=== PATIENT | male | born 1950 | race Hispanic/Latino ===

== ENCOUNTER 2020-05-09 09:37 | Day surgery (SDC) | payer MEDICARE, OTHER ==
[2020-05-09] MEDS ORDERED: LACTATED RINGERS 1,000 ML IV SCH (10:12)
[2020-05-09] MEDS ORDERED: SODIUM CHLORIDE 0.9% 1000 ML 1,000 ML ONE (10:51)
[2020-05-09] MEDS ORDERED: HYDROmorphone 1 MG/1 ML INJ IV PRN ×2 (11:11)
[2020-05-09] MEDS ORDERED: ONDANSETRON 4 MG/2 ML INJ IV PRN (11:11)
--- NOTE | 2020-05-09 11:12 | Anesthesia Day of Surgery ---
Anesthesia Day of Surgery - Day of Surgery Patient Examined: Yes Patient H&P Reviewed: Yes Patient is NPO: Yes
--- NOTE | 2020-05-09 11:14 | Anesthesia Consultation ---
Anesthesia Consult and Med Hx Date of service: 05/09/20 - Airway Anesthetic Teeth Evaluation: Edentulous ROM Head & Neck: Adequate Mental/Hyoid Distance: Adequate Mallampati Class: Class II Intubation Access Assessment: Good - Pre-Operative Health Status ASA Pre-Surgery Classification: ASA2 Proposed Anesthetic Plan: General - Pulmonary Hx Smoking: No Hx Respiratory Symptoms: No (+2FS) Hx Sleep Apnea: No (BRE PRE SCREEN HIGH RISK) - Cardiovascular System Hx Hypertension: No Hx Coronary Artery Disease: No (Negative NST [id number]) Hx Peripheral Vascular Disease: Yes (Carotid US [id number] <50% ) - Central Nervous System Hx Back Pain: Yes (NECK AND BACK PAIN) Hx Psychiatric Problems: No - Hematic Hx Anemia: No
[2020-05-09] MEDS ORDERED: ceFAZolin/Water 2 GM/20 ML 2 GM/20 ML SYRINGE IV ONE (11:39)
[2020-05-09] MEDS ORDERED: propofoL 200 MG/20 ML VIAL IV ONE (11:46)
[2020-05-09] MEDS ORDERED: HYDROmorphone 1 MG/1 ML INJ ONE (11:47)
[2020-05-09] MEDS ORDERED: LIDOCAINE MPF (2%) 20 MG/1 ML VIAL 5 ML ONE (11:47)
[2020-05-09] MEDS ORDERED: ceFAZolin/Water 2 GM/20 ML 2 GM/20 ML SYRINGE IV NR (12:00)
[2020-05-09] MEDS ORDERED: WATER FOR IRRIG STERILE 1,500 ML BOTTLE IR ONE (12:42)
[2020-05-09] MEDS ORDERED: WATER FOR IRRIG STERILE 2000 ML IR ONE (12:43)
[2020-05-09] MEDS ORDERED: ONDANSETRON 4 MG/2 ML INJ ONE (13:18)
[2020-05-09] MEDS ORDERED: SODIUM CHLORIDE 0.9% 1000 ML IV SOLN IR ONE (13:42)
--- NOTE | 2020-05-09 13:45 | Post Operative Note ---
Date of procedure: 05/09/20 Pre-op diagnosis: rec cap Post-op diagnosis: same Findings: small gland post xrt Procedure: cysto cryoablation prostate Anesthesia: GETA Surgeon: VERNA JACKSON Estimated blood loss: minimal Pathology: none Condition: stable Disposition: PACU
--- NOTE | 2020-05-09 13:46 | Discharge Summary ---
Short Stay Discharge Plan Activity: other (no straining ) Weight Bearing Status: Full Weight Bearing Diet: low fat, low cholesterol, low salt Wound: other (ice to perineum in rr ) Durable Medical Equipment Needed Upon Discharge: other (ervin care ) Follow up with: SAMARA ARMSTRONG [Other] - 7 Days VERNA JACKSON MD [Staff Physician] - 7 Days
--- NOTE | 2020-05-09 14:13 | Operative Report ---
PREOPERATIVE DIAGNOSIS: Recurrent prostate cancer, high grade. POSTOPERATIVE DIAGNOSIS: Recurrent prostate cancer, high grade. PROCEDURE: Cystoscopy, cryoablation of prostate. SURGEON: Dr. Lagunas. ANESTHESIA: General. FINDINGS: This is a gentleman who had disease at the right base. He has minimal tissue. Prostate gland is between 10 and 15 grams. He now presents for cryoablation. DESCRIPTION OF PROCEDURE: The patient was brought to the operating room and placed on the operating room table. Following induction of anesthesia, placed in lithotomy position, prepped and draped in usual sterile fashion. A 16 Rajan was easily inserted. The ultrasound was placed, showed a very small gland. We marked out the treatment plan, it was only accessible for a maximum of 4 probes. We focussed on the right side which had a little more tissue. Probes 1 and 2 were placed and checked in both images. Prior to doing that, we set the length at approximately 2-2.5 cm max. At this point, Denonvilliers was easily placed, it was placed a little towards the right side, extracapsular, and the sphincter probe was also placed. Probes 5 and 6 were placed as well. Once we checked this, a cystoscopy showed no urethral injury. We placed the rigid wire and the warmer, which was functioning. This was checked multiple times. The first freeze was carried out without difficulty and we started at 20-25 on probes 1 and 2 and gradually went down to 5-10 on the more posterior probes. Excellent ice ball was achieved. We had plenty of space in the rectum. Denonvilliers was well away from dangerous temperatures. Once we had a thaw, we did a second freeze after we rechecked the probes. We really never went over 20-25 percent. The patient tolerated the procedure well with a gradual freeze. Once we started even at that low percentage, freeze was quite fast because of the small amount of tissue. The patient tolerated the procedure well. Rajan catheter was placed, brought to recovery in stable condition. JOB# [id number] TOM/ROLANDO
--- NOTE | 2020-05-09 14:52 | Post Anesthesia Evaluation ---
- Post Anesthesia Evaluation Patient Participated: Yes Airway Patent: Yes Stable Respiratory Function: Yes Nausea/Vomiting: No Temp > 96.8F: Yes Pain Manageable: Yes Adequeate Hydration: Yes Anesthesia Complications: No Block Receding Appropriately: Not Applicable Patient on Ventilator: No
[2020-05-09 15:51] VITALS: BP 156/87
== END 2020-05-09 15:50 | disposition home or self-care (01) ==
LOC: OR 09:37
PROVIDERS: ATTEND Urology
DX: C61 Malignant neoplasm of prostate (principal); I73.9 Peripheral vascular disease, unspecified; E78.00 Pure hypercholesterolemia, unspecified; M19.90 Unspecified osteoarthritis, unspecified site; Z98.890 Other specified postprocedural states; Z79.899 Other long term (current) drug therapy; Z79.82 Long term (current) use of aspirin; Z96.641 Presence of right artificial hip joint
CPT/HCPCS: 55873; A4217; C2618; J0690; J1170; J2405; J2704; J7030; J7120